=== PATIENT | male | born 1995 | race Caucasian/White ===

== ENCOUNTER 2019-07-14 02:23 | Emergency (ER) | payer OTHER ==
[2019-07-14] MEDS ORDERED: Bupivacaine 0.5% 10 ML VIAL ONE (03:42)
[2019-07-14] MEDS ORDERED: Adacel (T-DAP) 0.5 ML SYRINGE ONE (03:44)
--- NOTE | 2019-07-14 07:47 | RAD ---
Left forearm 2 views HISTORY: Injury. FINDINGS: Radius and ulna are intact. No dislocation evident. Mild ulnar negative variant. No radiopaque foreign bodies. IMPRESSION : Normal exam.
--- NOTE | 2019-07-15 13:20 | EKG ---
Test Reason : Blood Pressure : / mmHG Vent. Rate : 066 BPM Atrial Rate : 066 BPM P-R Int : 150 ms QRS Dur : 094 ms QT Int : 374 ms P-R-T Axes : 074 064 054 degrees QTc Int : 392 ms Normal sinus rhythm Normal ECG Confirmed by ALBINO CARVALHO ([id number]), editor book JONI DIEGO ([id number]) on 07/15/2019 1:19:53 PM Referred By: Confirmed By:ALBINO Hill
== END 2019-07-14 04:58 | disposition home or self-care (01) ==
LOC: ERS 02:23
DX: S51.812A Laceration without foreign body of left forearm, initial encounter (principal); W01.198A Fall on same level from slipping, tripping and stumbling with subsequent striking against other object, initial encounter
CPT/HCPCS: 12002; 90471; 90715; 93005; J3490